=== PATIENT | female | born 1945 | race Caucasian/White ===

== ENCOUNTER → 2021-01-08 | Outpatient (CLI) | payer MEDICARE ==
[~2021-01-08] MED LIST: CLONAZEPAM 0.50.5 M1 PO; CYMBALTA60 MG; DUONEB 2.5-0.5 M3 ML INH; FOLIC ACID1 MG PO; FUROSEMIDE 40 M40 M1 PO; KEFLEX500 MG PO; LEVOTHYROXIN0.175 MG PO; LYRICA 75 MG CA75 MG PO; NEURONTIN 300300 M1 PO; NEXIUM 40 MG CA40 M1 PO; NICOTINE TRANSD21 M1; PEPCID20 MG PO; PRENATABS RX T1 EAC1 PO; ROBAFEN AC SYR120 ML PO; TYLENOL325 MG PO; VENTOLIN HFA 1818 GM; VITAMIN B-1100 M1 PO; VITAMIN D 5050000 I1 PO
== END ==
LOC: M.RAD 13:38
PROVIDERS: ATTEND Internal Medicine
DX: Z12.31 Encounter for screening mammogram for malignant neoplasm of breast (principal); Z78.0 Asymptomatic menopausal state; M81.0 Age-related osteoporosis without current pathological fracture; R05 Cough; J44.9 Chronic obstructive pulmonary disease, unspecified; Z87.891 Personal history of nicotine dependence; N64.89 Other specified disorders of breast; R91.8 Other nonspecific abnormal finding of lung field

== ENCOUNTER → 2021-07-23 | Outpatient (CLI) | payer MEDICARE ==
[2021-07-23 17:17] LABS: ABSOLUTE BASOPHILS 0.1 thou/uL (0.0-0.2); ABSOLUTE EOSINOPHILS 0.2 thou/uL (0.0-0.7); ABSOLUTE LYMPHOCYTES 2.5 thou/uL (0.8-5.3); ABSOLUTE MONOCYTES 0.4 thou/uL (0.0-1.2); ABSOLUTE NEUTROPHILS 2.8 thou/uL (1.6-8.1); BASOPHILS 1.2 %; EOSINOPHILS 2.9 %; HEMATOCRIT 39.6 % (37.0-47.0); HEMOGLOBIN 13.2 gm/dL (12.0-15.0); LYMPHOCYTES 42.1 %; MCH 32.5 pg (26.0-34.0); MCHC 33.4 g/dL (28.0-37.0); MCV 97.3 fL (80.0-100.0); MONOCYTES 7.4 %; MPV 8.8 fl. (7.2-11.1); NUCLEATED RBCS 0 /100WBC; PLATELET COUNT* 168 thou/uL (150-400); POLYS 46.4 %; RBC 4.07 mil/uL (4.20-5.00); RDW-CV 12.9 % (10.5-14.5)
[2021-07-23 17:22] LABS: CALCIUM 8.9 mg/dL (8.5-10.1); CREATININE 2.1 mg/dL (0.6-1.3); POTASSIUM 4.5 mmol/L (3.5-5.1)
--- NOTE | 2021-07-24 14:44 | EKG ---
[place] [address] ELECTROCARDIOGRAM REPORT Name: JUNE PHILIP Room: [facility]#: [id number] Admission: 07/23/21 Attend Phys: Onofre Moore MD Discharge: Date of : 41 Date of Service: 07/23/21 1639 Report #: [id number] THIS REPORT FOR: //name// [facility] Test Date: 2021-07-23 Test Time: 16:39:30 Pat Name: JUNE FLEMING Department: Room: Gender: [facility] Assistant: : [id number] Requested By: Onofre Moore Order Number: [id number] Reading MD: Nicola Jackson Measurements Intervals Chrisney Rate: 72 P: 87 MS: 224 QRS: -21 QRSD: 86 T: 79 QT: 376 QTc: 412 Interpretive Statements Sinus rhythm Atrial premature complex Prolonged MS interval Borderline left axis deviation septal infarct, old Baseline wander in lead(s) V5 Compared to ECG 05/26/2015 15:23:35 First degree AV block now present Myocardial infarct finding now present Sinus tachycardia no longer present Electronically Signed On 07-24-2021 14:44:41 [employer] by Nicola Jackson [email or web address] <ELECTRONICALLY SIGNED> By: Nicola Jackson MD, [facility] 07/24/21 1444 1639 1639 Nicola Jackson MD, [facility] /EPI
== END ==
LOC: M.CRD 16:28
PROVIDERS: ATTEND Urology
DX: I44.0 Atrioventricular block, first degree (principal); N13.30 Unspecified hydronephrosis; I45.9 Conduction disorder, unspecified